=== PATIENT | female | born 1945 | race Caucasian/White ===

== ENCOUNTER 2020-08-25 23:49 | Observation (INO) ==
[2020-08-26] MEDS ORDERED: LORazepam 1 MG/2 ML VIAL IV STA (00:12)
[2020-08-26] MEDS ORDERED: ONDANSETRON INJ 2 MG/ML 2 ML VIAL IV STA (00:12)
[2020-08-26] MEDS ORDERED: SODIUM CHLORIDE 0.9% 1000ML 1,000 ML IV SCH (00:15)
[2020-08-26 00:36] LABS: Basophils # (auto) 0.02 K/uL (0-0.2); Basophils % (auto) 0.3 %; Eosinophils # (auto) 0.24 K/uL (0-0.5); Eosinophils % (auto) 3.1 %; Hematocrit (blood only) 36.2 % (37-47); Hemoglobin 12.4 g/dL (12.0-16.0); Immature Granulocytes # (auto) 0.01 K/uL (0.00-0.02); Immature Granulocytes % (auto) 0.1 %; Lymphocytes # (auto) 2.79 K/uL (1.2-3.4); Lymphocytes % (auto) 36.3 %; Mean Corpuscular Hemoglobin 30.1 pg (25-34); Mean Corpuscular Hgb Conc 34.3 g/dL (32-36); Mean Corpuscular Volume 87.9 fL (80-100); Monocytes # (auto) 0.37 K/uL (0.11-0.59); Monocytes % (auto) 4.8 %; Neutrophils # (auto) 4.25 K/uL (1.4-6.5); Neutrophils % (auto) 55.4 %; Platelet Count 288 K/uL (130-400); RDW Coefficient of Variation 12.7 % (11.5-14.5); RDW Standard Deviation 41.1 fL (36.4-46.3); Red Blood Count 4.12 M/uL (4.2-5.4); White Blood Count 7.68 K/uL (4.8-10.8)
[2020-08-26 00:46] LABS: Partial Thromboplastin Ratio 0.9; Partial Thromboplastin Time 25.8 Seconds (21.0-31.0); Prothrombin Time 10.3 Seconds (9.0-12.0)
[2020-08-26 00:51] LABS: Alanine Aminotransferase 23 U/L (12-78); Albumin Level 3.6 gm/dl (3.4-5.0); Aspartate Aminotransferase 14 U/L (15-37); BUN Creatinine Ratio 26.8 (10-20); Blood Urea Nitrogen 24 mg/dl (7-18); Calcium 9.3 mg/dl (8.5-10.1); Carbon Dioxide 28 mmol/L (21-32); Chloride 108 mmol/L (98-107); Est GFR (African American) 74.5; Est GFR (Non-African American) 64.3; Glucose 112 mg/dl (70-99); Lipase 169 U/L (73-393); Magnesium 1.8 mg/dl (1.8-2.4); Potassium 3.7 mmol/L (3.5-5.1); Sodium 141 mmol/L (136-145)
[2020-08-26 01:02] LABS: Alkaline Phosphatase 70 U/L (45-117); Bilirubin,Total 0.2 mg/dl (0.2-1); Globulin 3.5 gm/dl (2.5-4.0); Total Protein 7.1 gm/dl (6.4-8.2); Troponin I < 0.015 ng/ml (0-0.045)
[2020-08-26 01:32] LABS: Lyme Ab IgG w/WB Rflx Negative (Negative); Lyme Ab IgM w/WB Rflx Negative (Negative)
[2020-08-26 02:17] LABS: Appearance Urine Clear (Clear); Bacteria Urine Automated Negative (Negative); Bilirubin Urine Negative (Negative); Blood Urine 2+ (Negative); Color Urine Yellow; Glucose Urine UA Negative (Negative); Ketones Urine Negative (Negative); Leukocyte Esterase Urine Negative (Negative); Nitrite Urine Negative (Negative); Specific Gravity Urine 1.009 (1.000-1.030); Urobilinogen Urine Negative (Negative); pH Urine 7.5 (4.5-7.5)
[2020-08-26 02:20] LABS: Protein Urine 2+ (Negative)
[2020-08-26 02:21] LABS: Sulfosalicylic Acid Urine Positive (Negative)
[2020-08-26] MEDS ORDERED: ACETAMINOPHEN 325 MG TAB PO PRN (04:43)
[2020-08-26] MEDS ORDERED: ONDANSETRON INJ 2 MG/ML 2 ML VIAL IV PRN (04:43)
[2020-08-26] MEDS ORDERED: PANTOprazole 40 MG TAB PO PRN (04:53)
[2020-08-26] MEDS ORDERED: MELATONIN 3 MG TAB PO PRN (04:54)
--- NOTE | 2020-08-26 06:06 | History and Physical Report ---
DATE OF ADMISSION: 08/26/2020 CHIEF COMPLAINT: Vertigo. HISTORY OF PRESENT ILLNESS: A 75-year-old female with past medical history significant for hypertension, GERD, history of asymptomatic microscopic hematuria, history of osteoarthritis of both knees, chronic rhinitis, history of hypercalcemia, history of anaphylaxis to spironolactone, family history of breast cancer who lives with her came in with vertigo. The patient is going to sleep and suddenly felt the room spinning. They thought it will go away, but did not go away and she has severe nausea and vomiting, which put pressure in her bladder and she has incontinence of the urine. She is also having ambulatory dysfunction, imbalance and was brought in here. The patient in the ER received Ativan, Zofran, and fluids. CT of the head, preliminary report unremarkable. The symptoms slowly improved. Her spinning has improved, but she still has some imbalance, but that is better than what she came in. The patient also complains of some drainage from the ear for last 2 days. Denies any fever, chills, no headache, no blurred vision, no runny nose, no sore throat, no cough, no loss of sense of smell or taste. No chest pain, no shortness of breath. No exposure to COVID patients. No abdominal discomfort, no diarrhea or constipation. Normal bladder movements. No swelling in the legs, no rash. Currently resting comfortably and hemodynamically stable. ALLERGIES: OXYCODONE, ASPIRIN, PERCODAN AND SPIRONOLACTONE. PAST MEDICAL HISTORY: As mentioned above. PAST SURGICAL HISTORY: Colonoscopy, dilatation and curettage, lasering of secondary cataracts, urethral surgery, tonsillectomy, removal of cataract lens, right repair of ruptured rotator cuff. MEDICATIONS: The patient is on estradiol vaginal ring every 3 months, amlodipine 2.5 mg p.o. daily, valsartan 80 mg p.o. daily, albuterol 2 puffs q4hr p.r.n., melatonin 5 mg p.o. at bedtime p.r.n., Nexium 20 mg p.o. daily p.r.n. FAMILY HISTORY: Significant for sister had breast cancer. Brother had kidney cancer. Father had prostate cancer, heart disorder, hypertension. Paternal grandmother had stroke. SOCIAL HISTORY: , lives with her . Quit smoking in 2008, smoked an average of 0.2 packs a day for 40 years. Alcohol social drinking. No drug use. REVIEW OF SYMPTOMS: As per HPI. Rest of the review of symptoms negative. PHYSICAL EXAMINATION: GENERAL: The patient is of moderate build, not in acute distress. VITAL SIGNS: Temperature 36.4, pulse 80, respiratory rate 15, blood pressure 174/82, oxygen 95% on room air. HEENT: No pallor, no icterus. Pupils equal, round, reactive to light. Mild horizontal nystagmus present.Right ear erythema seen close to ear drum. Left ear not able to evaluate.some wax seen. NECK: No JVD, no neck masses. CARDIOVASCULAR: S1, S2 heard, regular rate and rhythm, no murmur, no gallop. RESPIRATORY SYSTEM: Normal AP diameter. No accessory muscle use. No wheezing, no crackles. ABDOMEN: Soft, bowel sounds present, nontender. No distention. CENTRAL NERVOUS SYSTEM: Cranial nerves II-XII grossly intact. Nonfocal. Power 5/5 in all extremities. Sensation is intact. No pronator drift. Coordination of movements normal. EXTREMITIES: No edema, no erythema. LABORATORY DATA: WBC 7.6, hemoglobin 12.4, hematocrit 36.2, platelets 288. PT 13.3, INR 1, APTT 25.8. Sodium 141, potassium 3.7, chloride 108, bicarbonate 28, BUN 24, creatinine 0.8, serum glucose 112, calcium 9.3, magnesium 1.8, total bilirubin 0.2, AST 14, ALT 23, alkaline phosphatase 70. Troponin I less than 0.015. TSH 3.7. Lipase 169. Urinalysis, +2 blood, +2 protein. Lyme disease screen negative. IMAGING: CT of the head, preliminary report unremarkable. EKG: Normal sinus rhythm with sinus arrhythmia at rate of 71, QTC of 475. ASSESSMENT AND PLAN: A 75-year-old female who presents with vertigo. 1. Vertigo, also has some drainage of the ears for 2 days, some mild erythema seen close to the eardrum on the right ear. Could not evaluate in the left ear, could be from the ear infection, could be benign positional vertigo. CT of head is unremarkable. Currently, symptoms are improving. We will continue with. Augmentin for ear infection. Antivert prn. and consult neurology for further recommendations. Monitor in the medical floor. 2. History of hypertension. Continue valsartan, amlodipine. 3. Gastroesophageal reflux disease. Continue Nexium. 4. Deep venous thrombosis prophylaxis, sequential compression devices for now. DISPOSITION: Admit to medical floor. Expect to discharge home and follow with family doctor. PT and OT prior to discharge. Social service to help with discharge planning. UMESH
[2020-08-26] MEDS ORDERED: MECLIZINE HCL 25 MG TAB PO PRN (06:16)
--- NOTE | 2020-08-26 06:24 | Emergency Department Note ---
History of Present Illness General Chief complaint: Vertigo Stated complaint: VERTIGO,DIZZY,NAUSEA, Time Seen by Provider: 08/26/20 00:06 History of Present Illness Maximum Pain Intensity: 2 This is a 75-year-old female presenting to the emergency department for evaluation of nausea, vomiting, and dizziness for the past hour. The patient states that she went out with her this evening, had dinner, and then came home as normal. She got into bed and was reading a book when she began having a spinning sensation from left to right. The patient states this became very severe and she had multiple episodes of vomiting. She had difficulty ambulating because of the dizziness. She is not having significant head, neck, chest, or abdominal pain. She is able to move her extremities without difficulty. The patient considers herself usually healthy. Home Medications Home Medications Medication Instructions Recorded Confirmed Type amlodipine 2.5 mg PO DAILY 03/30/19 08/26/20 History diphenhydramine HCl [Unisom 50 - 100 mg PO HS PRN 03/30/19 08/26/20 History Sleepgels] esomeprazole magnesium [Nexium] 20 mg PO DAILY PRN 08/26/20 08/26/20 History melatonin 5 mg PO HS PRN 08/26/20 08/26/20 History valsartan 80 mg PO DAILY 08/26/20 08/26/20 History Allergies Allergy/AdvReac Type Severity Reaction Status Date / Time spironolactone Allergy Severe ANAPHYLACTI Verified 08/26/20 00:48 C mold Allergy Mild SNEEZING, Verified 08/26/20 00:48 CONGESTION pollen extracts Allergy Mild SNEEZING, Verified 08/26/20 00:48 CONGESTION codeine AdvReac Intermediate VERY DROWSY Verified 08/26/20 00:48 Dust Allergy Mild SNEEZING, Uncoded 08/26/20 00:48 CONGESTION Past Med/Surg History Medical History (Updated 08/26/20 @ 06:37 by Balta Paul PA-C) Hypertension Surgical History (Updated 08/26/20 @ 06:25 by Balta Paul PA-C) No significant past surgical history Family History Other Family history non-contributory Social History Smoking Status: Current every day smoker Tobacco Type: Cigarettes Cigarettes Per Day: 1; Second Hand Exposure: Yes ( smokes 2 cigars a week); Do You Dip or Chew Tobacco: No; Tobacco Cessation Education Requested by Patient: No Hx Alcohol Use: Yes Alcohol type: wine and hard liquor Hx Substance Use: No Preferred Language: Italian Beliefs That Will Affect Care: None Current Living Situation: Spouse Other Information That Helps Us Care for You: No Feels Safe at Home: Yes Safety Concerns: Feels Safe At This Time Assistive Devices: None Review of Systems A total of 10 systems reviewed and were otherwise negative Physical Exam Vital Signs Vital Signs - 24 hr 08/25/20 23:53 08/26/20 00:10 08/26/20 00:15 Temperature 36.4 C L Temperature Source Oral Pulse Rate 70 71 75 Pulse Rate [Apical] Pulse Rate from SpO2 Sensor 66 76 Pulse Rhythm [Apical] Pulse Strength [Apical] Respiratory Rate 16 13 12 Respiratory Effort / Characteristics Respiratory Depth Blood Pressure 170/109 H 174/85 H Blood Pressure [Right Arm] Blood Pressure Mean 129 105 Blood Pressure Mean [Right Arm] Pulse Oximetry 99 100 100 Oxygen Delivery Method Room Air Sepsis Recent Fever Within 48 Hours No Sepsis New/Unexplained Change in Mental Status No Sepsis Action Taken by Nursing No Action Required 08/26/20 00:30 08/26/20 00:58 08/26/20 01:00 Temperature Temperature Source Pulse Rate 71 92 H 80 Pulse Rate [Apical] Pulse Rate from SpO2 Sensor 71 76 Pulse Rhythm [Apical] Pulse Strength [Apical] Respiratory Rate 14 19 15 Respiratory Effort / Characteristics Respiratory Depth Blood Pressure 180/91 H 164/96 H Blood Pressure [Right Arm] Blood Pressure Mean 98 131 Blood Pressure Mean [Right Arm] Pulse Oximetry 100 100 Oxygen Delivery Method Sepsis Recent Fever Within 48 Hours Sepsis New/Unexplained Change in Mental Status Sepsis Action Taken by Nursing 08/26/20 01:10 08/26/20 01:20 08/26/20 01:30 Temperature Temperature Source Pulse Rate 89 71 69 Pulse Rate [Apical] Pulse Rate from SpO2 Sensor 87 84 68 Pulse Rhythm [Apical] Pulse Strength [Apical] Respiratory Rate 17 6 L 14 Respiratory Effort / Characteristics Respiratory Depth Blood Pressure 145/71 H Blood Pressure [Right Arm] Blood Pressure Mean 94 Blood Pressure Mean [Right Arm] Pulse Oximetry 94 97 99 Oxygen Delivery Method Sepsis Recent Fever Within 48 Hours Sepsis New/Unexplained Change in Mental Status Sepsis Action Taken by Nursing 08/26/20 01:40 08/26/20 01:50 08/26/20 02:00 Temperature Temperature Source Pulse Rate 73 66 79 Pulse Rate [Apical] Pulse Rate from SpO2 Sensor 71 69 80 Pulse Rhythm [Apical] Pulse Strength [Apical] Respiratory Rate 14 15 15 Respiratory Effort / Characteristics Respiratory Depth Blood Pressure 166/94 H Blood Pressure [Right Arm] Blood Pressure Mean 122 Blood Pressure Mean [Right Arm] Pulse Oximetry 98 100 99 Oxygen Delivery Method Sepsis Recent Fever Within 48 Hours Sepsis New/Unexplained Change in Mental Status Sepsis Action Taken by Nursing 08/26/20 02:09 08/26/20 02:10 08/26/20 02:39 Temperature Temperature Source Pulse Rate 85 80 Pulse Rate [Apical] 65 Pulse Rate from SpO2 Sensor 81 80 Pulse Rhythm [Apical] Regular Pulse Strength [Apical] Normal Respiratory Rate 19 17 18 Respiratory Effort / Characteristics Non-Labored Respiratory Depth Normal Blood Pressure Blood Pressure [Right Arm] 155/73 H Blood Pressure Mean Blood Pressure Mean [Right Arm] 100 Pulse Oximetry 100 100 95 Oxygen Delivery Method Room Air Sepsis Recent Fever Within 48 Hours Sepsis New/Unexplained Change in Mental Status Sepsis Action Taken by Nursing 08/26/20 02:50 08/26/20 03:00 Temperature Temperature Source Pulse Rate 70 82 Pulse Rate [Apical] Pulse Rate from SpO2 Sensor Pulse Rhythm [Apical] Pulse Strength [Apical] Respiratory Rate 13 14 Respiratory Effort / Characteristics Respiratory Depth Blood Pressure 174/82 H Blood Pressure [Right Arm] Blood Pressure Mean 104 Blood Pressure Mean [Right Arm] Pulse Oximetry Oxygen Delivery Method Sepsis Recent Fever Within 48 Hours Sepsis New/Unexplained Change in Mental Status Sepsis Action Taken by Nursing VITALS: Vitals are noted on the nurse's note and reviewed by myself. Vital signs stable. GENERAL: Well-developed, well-nourished, white female, who laying flat on the bed in the ER room. Her eyes are closed and she appears uncomfortable. HEAD: Normocephalic atraumatic. EARS: External ear normal. External auditory canals clear, tympanic membranes pearly dejesus without erythema or effusion bilaterally. EYES: Pupils equal round and reactive to light and accommodation. Conjunctivae without injection, sclerae without icterus. Extraocular movements intact. NOSE: Patent, turbinates without inflammation or discharge. MOUTH: Mucous membranes moist. Tonsils are not enlarged. Pharynx without e rythema, blood, or exudate. Uvula midline. Airway patent. NECK: Supple without nuchal rigidity. No lymphadenopathy. No thyromegaly. Cervical spine is nontender. HEART: Regular rate and rhythm without murmurs gallops or rubs. LUNGS: Clear to auscultation bilaterally without wheezes, rales or rhonchi. No retractions or accessory muscle use. MUSCULOSKELETAL: No muscle atrophy, erythema, or edema noted. Full range of motion in all extremities. No tenderness to palpation. NEURO: Patient was alert and oriented to person place and time. CN II through XII grossly intact. No focal neurological deficits. Course Administered Medications Discontinued Medications Sodium Chloride (Nss 1000ml) 1,000 mls @ 999 mls/hr IV .Q1H1M BRANDON Stop: 08/26/20 01:15 Last Infusion: 08/26/20 01:38 Dose: 0 mls/hr Documented by: [id number] Admin: 08/26/20 00:37 Dose: 999 mls/hr Documented by: [id number] Lorazepam (Ativan) 1 mg in 2 mls @ 2 mls/min IV NOW STA Stop: 08/26/20 00:13 Last Admin: 08/26/20 00:37 Dose: 2 mls/min Documented by: [id number] Ondansetron HCl (Ondansetron Inj 2 Mg/Ml 2 Ml Vial) 4 mg IV NOW STA Stop: 08/26/20 00:13 Last Admin: 08/26/20 00:37 Dose: 4 mg Documented by: [id number] Medical Decision Making Differential Diagnosis Differential diagnosis: Etiologies such as benign positional vertigo, labrynthitis, dehydration, hypovolemia, anemia, tumor, infection, hypoglycemia, electrolyte abnormalities, cardiac sources, toxicological sources, central neurologic process, as well as others were entertained. Laboratory Data Result diagrams: 08/26/20 00:23 08/26/20 00:25 Lab Results 08/26/20 08/26/20 08/26/20 Range/Units 00:23 00:23 00:23 WBC 7.68 (4.8-10.8) K/uL RBC 4.12 L (4.2-5.4) M/uL Hgb 12.4 (12.0-16.0) g/dL Hct 36.2 L (37-47) % MCV 87.9 (80-100) fL MCH 30.1 (25-34) pg MCHC 34.3 (32-36) g/dL RDW Std Deviation 41.1 (36.4-46.3) fL RDW Coeff of Bruce 12.7 (11.5-14.5) % Plt Count 288 (130-400) K/uL MPV 10.0 (7.4-10.4) fL Immature Gran % (Auto) 0.1 % Neut % (Auto) 55.4 % Lymph % (Auto) 36.3 % [place] % (Auto) 4.8 % Eos % (Auto) 3.1 % Baso % (Auto) 0.3 % Neut # (Auto) 4.25 (1.4-6.5) K/uL Lymph # (Auto) 2.79 (1.2-3.4) K/uL [place] # (Auto) 0.37 (0.11-0.59) K/uL Eos # (Auto) 0.24 (0-0.5) K/uL Baso # (Auto) 0.02 (0-0.2) K/uL Immature Gran # (Auto) 0.01 (0.00-0.02) K/uL PT 10.3 (9.0-12.0) Seconds INR 1.0 (0.9-1.1) APTT 25.8 (21.0-31.0) Seconds PTT Ratio 0.9 Sodium (136-145) mmol/L Potassium (3.5-5.1) mmol/L Chloride (98-107) mmol/L Carbon Dioxide (21-32) mmol/L Anion Gap (3-11) BUN (7-18) mg/dl Creatinine (0.6-1.2) mg/dl Est Cr Clr Drug Dosing Est GFR ( Amer) Est GFR (Non-Af Amer) BUN/Creatinine Ratio (10-20) Glucose (70-99) mg/dl Calcium (8.5-10.1) mg/dl Magnesium (1.8-2.4) mg/dl Total Bilirubin (0.2-1) mg/dl AST (15-37) U/L ALT (12-78) U/L Alkaline Phosphatase (45-117) U/L Troponin I (0-0.045) ng/ml Total Protein (6.4-8.2) gm/dl Albumin (3.4-5.0) gm/dl Globulin (2.5-4.0) gm/dl Albumin/Globulin Ratio (0.9-2) Lipase (73-393) U/L TSH (0.300-4.500) uIu/ml Urine Color Urine Appearance (Clear) Urine pH (4.5-7.5) Ur Specific [place] (1.000-1.030) Urine Protein (Negative) Urine Glucose (UA) (Negative) Urine Ketones (Negative) Urine Blood (Negative) Urine Nitrite (Negative) Urine Bilirubin (Negative) Urine Urobilinogen (Negative) Ur Leukocyte Esterase (Negative) Urine WBC (Auto) (0-5) /hpf Urine RBC (Auto) (0-4) /hpf U Hyaline Cast (Auto) (0-5) /lpf U Epithel Cells (Auto) (0-5) /lpf Urine Bacteria (Auto) (Negative) Lyme Disease IgG Ab Negative (Negative) Lyme Disease IgM Ab Negative (Negative) 08/26/20 08/26/20 Range/Units 00:25 02:05 WBC (4.8-10.8) K/uL RBC (4.2-5.4) M/uL Hgb (12.0-16.0) g/dL Hct (37-47) % MCV (80-100) fL MCH (25-34) pg MCHC (32-36) g/dL RDW Std Deviation (36.4-46.3) fL RDW Coeff of Bruce (11.5-14.5) % Plt Count (130-400) K/uL MPV (7.4-10.4) fL Immature Gran % (Auto) % Neut % (Auto) % Lymph % (Auto) % [place] % (Auto) % Eos % (Auto) % Baso % (Auto) % Neut # (Auto) (1.4-6.5) K/uL Lymph # (Auto) (1.2-3.4) K/uL [place] # (Auto) (0.11-0.59) K/uL Eos # (Auto) (0-0.5) K/uL Baso # (Auto) (0-0.2) K/uL Immature Gran # (Auto) (0.00-0.02) K/uL PT (9.0-12.0) Seconds INR (0.9-1.1) APTT (21.0-31.0) Seconds PTT Ratio Sodium 141 (136-145) mmol/L Potassium 3.7 (3.5-5.1) mmol/L Chloride 108 H (98-107) mmol/L Carbon Dioxide 28 (21-32) mmol/L Anion Gap 5.0 (3-11) BUN 24 H (7-18) mg/dl Creatinine 0.88 (0.6-1.2) mg/dl Est Cr Clr Drug Dosing Not Reportable Est GFR ( Amer) 74.5 Est GFR (Non-Af Amer) 64.3 BUN/Creatinine Ratio 26.8 H (10-20) Glucose 112 H (70-99) mg/dl Calcium 9.3 (8.5-10.1) mg/dl Magnesium 1.8 (1.8-2.4) mg/dl Total Bilirubin 0.2 (0.2-1) mg/dl AST 14 L (15-37) U/L ALT 23 (12-78) U/L Alkaline Phosphatase 70 (45-117) U/L Troponin I < 0.015 (0-0.045) ng/ml Total Protein 7.1 (6.4-8.2) gm/dl Albumin 3.6 (3.4-5.0) gm/dl Globulin 3.5 (2.5-4.0) gm/dl Albumin/Globulin Ratio 1.0 (0.9-2) Lipase 169 (73-393) U/L TSH 3.780 (0.300-4.500) uIu/ml Urine Color Yellow Urine Appearance Clear (Clear) Urine pH 7.5 (4.5-7.5) Ur Specific [place] 1.009 (1.000-1.030) Urine Protein 2+ H (Negative) Urine Glucose (UA) Negative (Negative) Urine Ketones Negative (Negative) Urine Blood 2+ H (Negative) Urine Nitrite Negative (Negative) Urine Bilirubin Negative (Negative) Urine Urobilinogen Negative (Negative) Ur Leukocyte Esterase Negative (Negative) Urine WBC (Auto) 1-5 (0-5) /hpf Urine RBC (Auto) 5-10 H (0-4) /hpf U Hyaline Cast (Auto) 1-5 (0-5) /lpf U Epithel Cells (Auto) 10-20 H (0-5) /lpf Urine Bacteria (Auto) Negative (Negative) Lyme Disease IgG Ab (Negative) Lyme Disease IgM Ab (Negative) Imaging Data Radiologist's Impression: Preliminary Findings Only See Final Report For Complete Findings CT HEAD: No intracranial hemorrhage, midline shift or mass effect. No evidence for cortical infarct. Progressive deep white matter presumed microvascular changes when compared to the examination dated 11/14/2009. No significant ventriculomegaly. The paranasal sinuses and mastoid air cells are well-aerated. ECG Data Attestation: I personally reviewed and interpreted this ECG as follows: Indication: + other (Dizzy) Additional Comments: Normal sinus rhythm with sinus arrhythmia @71 bpm Septal infarct (cited on or before 26-AUG-2020) When compared with ECG of 30-MAR-2019 19:58, QT has lengthened Blood Pressure Blood Pressure Findings: Elevated blood pressure Blood Pressure Disposition: further management by hospitalist [facility] Narrative Physical exam and history were performed. Nursing notes, EMR, and Medication List were personally reviewed. Patient appears to have nausea, vomiting, and dizziness bring her to the ER. The patient does appear uncomfortable on exam. IV access was established and labs are obtained. She was hydrated with normal saline and given IV Ativan and IV Zofran. The patient was sent to CT scan for further evaluation. The patient's blood work is as above and was reviewed. She does not have a significantly elevated white blood cell count, gross anemia, or significant electrolyte imbalance. Lipase and transaminases are not diagnostic. Troponin x1 is negative. TSH shows euthyroid state. Urine is without obvious infection. Lyme screen is negative. CT scan was reviewed by myself and radiology showing no acute process. On reevaluation the patient did have some improvement of her dizziness symptoms. The case was discussed with my attending physician, who also independently evaluated the patient. The patient evidently did have some alcohol this evening, and this may have played a role in her symptoms. I did have the patient attempt an ambulatory trial, and she was very unsteady on her feet. She was able to use the bathroom with assistance, however she is certainly not stable for discharge home. Because of this the case was discussed with the on- call hospitalist, who agreed to evaluate the patient here in the ER. Please see their dictation for further patient course, plan, and disposition. The chart was completed utilizing [employer] Speech Voice Recognition Software. Grammatical errors, random word insertions, pronoun errors, and incomplete sentences are an occasional consequence of this system due to software limitations, ambient noise, and hardware issues. Any formal questions or concerns about the content, text, or information contained within the body of this dictation should be directly addressed to the provider for clarification. . Impression & Plan Dizziness, Nausea and vomiting Discharge Plan Visit Data Chief Complaint: Vertigo Stated Complaint: VERTIGO,DIZZY,NAUSEA, ED Provider: Gerda Rojo ED Midlevel Provider: Balta Paul Discharge Problem: Dizziness, Nausea and vomiting Patient Disposition: Admitted As Inpatient Discharge Instructions Interventions: ED Discharge Assessment Last Done: 08/26/20 04:20
--- NOTE | 2020-08-26 06:29 | Emergency Department Note ---
ED Visit Note I have personally seen and evaluated the patient with the PA. I agree with the diagnosis and management decisions and have been personally involved in the case. On my reevaluation, patient was feeling somewhat improved and was ambulatory to the bathroom with assistance. She was unsteady on her feet and did admit to alcohol with her dinner out this evening. It is difficult to say if this is playing a role in her vertiginous symptoms. The patient does not seem to be stable for discharge to her at this time and will require evaluation by the hospitalist. Please see Balta Paul PA-C's notes for further details of the history, physical and visit. .
--- NOTE | 2020-08-26 07:14 | CT Scan Report ---
CT SCAN OF THE BRAIN WITHOUT IV CONTRAST CLINICAL HISTORY: Vertigo. Vomiting. COMPARISON STUDY: CT of the brain dated 11/14/2009. TECHNIQUE: Unenhanced axial CT scan of the brain is performed from the vertex to the skull base. A do se lowering technique was utilized adhering to the principles of ALARA. CT DOSE: 614.27 mGy.cm FINDINGS: Brain parenchyma: There are age-related involutional changes noting moderate subcortical and periven tricular microangiopathic change. There is no hemorrhage, mass effect, or evidence of acute territori al ischemia by CT criteria. Yates-white matter differentiation is preserved. No extra-axial fluid abhay ection is seen. Ventricles, sulci, cisterns: Prominent secondary to involutional change. Intracranial vasculature: There is atherosclerotic calcification of the cavernous carotid and vertebr al arteries. Calvarium: Unremarkable. Sinuses and mastoids: The visualized paranasal sinuses are clear. The mastoid air cells are well pneu matized. Orbits: The bony orbits are grossly intact. There are bilateral ocular lens implants. IMPRESSION: There is no hemorrhage, mass effect, or evidence of acute territorial ischemia by CT jimmy walker. ACT 112: Negative or not required by law. Electronically signed by: Porter Garrison M.D. 08/26/2020 7:13 AM
[2020-08-26] MEDS: AMOXICILLIN/CLAVULANATE 875 MG TAB PO SCH ×2 (08:51→16:41)
[2020-08-26] MEDS: VALSARTAN 80 MG TAB PO SCH (08:52)
[2020-08-26] MEDS ORDERED: AMLODIPINE BESYLATE 5 MG TAB PO SCH (09:00)
--- NOTE | 2020-08-26 12:02 | Hospitalist Progress Note ---
Date of Service August 26, 2020 Assessment & Plan (1) Nausea and vomiting: (2) Dizziness: Vertigo Likely related to labyrinthitis, Otitis media Considering h/o chronic intermittent ear discharge, tinnitus Currently on augmentin for ear infection Antivert prn Vertigo resolved at this time PT/OT Will need ENT follow up on discharge (3) Hypertension: Continue home antihypertensives Other plan as detailed in H/P this morning Admission and Anticipated Discharge Date Admission Date: August 26, 2020 Subjective Patient seen and examined Reports chronic hx of intermittent ear discharge and ringing in both ears as well as some hearing loss However, stated vertigo that occurred yesterday was the first time. Denied any fevers, chills Has chronic cough from chronic rhinitis Other history as detailed in Dr Welch's note this AM Physical Exam Constitutional: well nourished and + well hydrated; no acute distress Eyes: PERRL, conjunctivae normal, anicteric sclerae ENMT: external ear and nose normal, oropharynx normal Ears: no external ear abnormality No tragal tenderness or external meatal discharge noted Respiratory: normal respiratory effort, lungs clear to auscultation Cardiovascular: RRR, no murmur, no edema Gastrointestinal (Abdomen): normal bowel sounds, soft, nontender, no hepatosplenomegaly Neurologic: PERRL, EOMI, accommodation nl, no face palsy, no dysarthria Psychiatric: A+Ox3, euthymic affect Results & Data Results & Data ([facility]) Vital Signs (Past 12 Hours) Vital Signs Temp Pulse Pulse Pulse Pulse Resp BP 08/26/20 07:44 36.6 C 82 16 08/26/20 04:51 36.3 C L 85 16 08/26/20 04:14 76 17 125/67 08/26/20 03:10 80 15 08/26/20 03:00 82 14 174/82 H 08/26/20 02:50 70 13 08/26/20 02:39 65 18 08/26/20 02:10 80 17 08/26/20 02:09 85 19 08/26/20 02:00 79 15 166/94 H 08/26/20 01:50 66 15 08/26/20 01:40 73 14 08/26/20 01:30 69 14 145/71 H 08/26/20 01:20 71 6 L 08/26/20 01:10 89 17 08/26/20 01:00 80 15 164/96 H 08/26/20 00:58 92 H 19 08/26/20 00:30 71 14 180/91 H 08/26/20 00:15 75 12 08/26/20 00:10 71 13 174/85 H BP Pulse Ox 08/26/20 07:44 153/88 H 98 08/26/20 04:51 145/88 H 98 08/26/20 04:14 99 08/26/20 03:10 08/26/20 03:00 08/26/20 02:50 08/26/20 02:39 155/73 H 95 08/26/20 02:10 100 08/26/20 02:09 100 08/26/20 02:00 99 08/26/20 01:50 100 08/26/20 01:40 98 08/26/20 01:30 99 08/26/20 01:20 97 08/26/20 01:10 94 08/26/20 01:00 100 08/26/20 00:58 08/26/20 00:30 100 08/26/20 00:15 100 08/26/20 00:10 100 Laboratory Results Laboratory Results - last 24 hr 08/26/20 08/26/20 08/26/20 00:23 00:23 00:23 WBC 7.68 RBC 4.12 L Hgb 12.4 Hct 36.2 L MCV 87.9 MCH 30.1 MCHC 34.3 RDW Std Deviation 41.1 RDW Coeff of Bruce 12.7 Plt Count 288 MPV 10.0 Immature Gran % (Auto) 0.1 Neut % (Auto) 55.4 Lymph % (Auto) 36.3 [place] % (Auto) 4.8 Eos % (Auto) 3.1 Baso % (Auto) 0.3 Neut # (Auto) 4.25 Lymph # (Auto) 2.79 [place] # (Auto) 0.37 Eos # (Auto) 0.24 Baso # (Auto) 0.02 Immature Gran # (Auto) 0.01 PT 10.3 INR 1.0 APTT 25.8 PTT Ratio 0.9 Sodium Potassium Chloride Carbon Dioxide Anion Gap BUN Creatinine Est Cr Clr Drug Dosing Est GFR ( Amer) Est GFR (Non-Af Amer) BUN/Creatinine Ratio Glucose Calcium Magnesium Total Bilirubin AST ALT Alkaline Phosphatase Troponin I Total Protein Albumin Globulin Albumin/Globulin Ratio Lipase TSH Urine Color Urine Appearance Urine pH Ur Specific [place] Urine Protein Urine Glucose (UA) Urine Ketones Urine Blood Urine Nitrite Urine Bilirubin Urine Urobilinogen Ur Leukocyte Esterase Urine WBC (Auto) Urine RBC (Auto) U Hyaline Cast (Auto) U Epithel Cells (Auto) Urine Bacteria (Auto) Lyme Disease IgG Ab Negative Lyme Disease IgM Ab Negative Hepatitis C Ab Screen 08/26/20 08/26/20 08/26/20 00:25 02:05 06:17 WBC RBC Hgb Hct MCV MCH MCHC RDW Std Deviation RDW Coeff of Bruce Plt Count MPV Immature Gran % (Auto) Neut % (Auto) Lymph % (Auto) [place] % (Auto) Eos % (Auto) Baso % (Auto) Neut # (Auto) Lymph # (Auto) [place] # (Auto) Eos # (Auto) Baso # (Auto) Immature Gran # (Auto) PT INR APTT PTT Ratio Sodium 141 Potassium 3.7 Chloride 108 H Carbon Dioxide 28 Anion Gap 5.0 BUN 24 H Creatinine 0.88 Est Cr Clr Drug Dosing Not Reportable Est GFR ( Amer) 74.5 Est GFR (Non-Af Amer) 64.3 BUN/Creatinine Ratio 26.8 H Glucose 112 H Calcium 9.3 Magnesium 1.8 Total Bilirubin 0.2 AST 14 L ALT 23 Alkaline Phosphatase 70 Troponin I < 0.015 Total Protein 7.1 Albumin 3.6 Globulin 3.5 Albumin/Globulin Ratio 1.0 Lipase 169 TSH 3.780 Urine Color Yellow Urine Appearance Clear Urine pH 7.5 Ur Specific [place] 1.009 Urine Protein 2+ H Urine Glucose (UA) Negative Urine Ketones Negative Urine Blood 2+ H Urine Nitrite Negative Urine Bilirubin Negative Urine Urobilinogen Negative Ur Leukocyte Esterase Negative Urine WBC (Auto) 1-5 Urine RBC (Auto) 5-10 H U Hyaline Cast (Auto) 1-5 U Epithel Cells (Auto) 10-20 H Urine Bacteria (Auto) Negative Lyme Disease IgG Ab Lyme Disease IgM Ab Hepatitis C Ab Screen Neg
--- NOTE | 2020-08-26 15:22 | Consultation Report ---
DATE OF CONSULTATION: 08/26/2020 NEUROLOGY CONSULTATION NOTE CHIEF COMPLAINT: Vertigo. HISTORY OF PRESENT ILLNESS: A 75-year-old woman who presented to the Emergency Department this morning for vertigo. She has a past medical history significant for hypertension as well as osteoarthritis of both knees and a history of hypercalcemia. The patient was going to sleep last evening and suddenly felt like the room was spinning. She thought it was going to go away, but it persisted. She then developed severe nausea and vomiting with incontinence. As a result of the vertigo she was having ambulatory dysfunction with balance issues. She was brought to the Emergency Department this morning and received Ativan, Zofran, and fluids. CT of the head was unremarkable. Symptoms did slowly improve as well as the vertigo also improved, but her balance remained poor and she was brought in for observation. Neurology was consulted for evaluation of vertigo. ALLERGIES: OXYCODONE, ASPIRIN, PERCODAN SPIRONOLACTONE. PAST MEDICAL HISTORY: Hypertension, gastroesophageal reflux disease, history of microscopic hematuria. History of osteoarthritis of both knees, chronic rhinitis, hypercalcemia, history of anaphylaxis to spironolactone and family history of breast cancer. PAST SURGICAL HISTORY: Colonoscopy, D&C, lasering of secondary cataracts, urethral surgery, tonsillectomy, removal of cataracts lenses, right repair of ruptured rotator cuff. HOME MEDICATIONS: Estradiol vaginal ring, amlodipine 2.5 mg daily, valsartan 80 mg daily, albuterol as needed, melatonin 5 mg nightly, Nexium daily. FAMILY HISTORY: Sister had breast cancer. Brother had kidney cancer. Father had prostate cancer, heart disorder, hypertension. SOCIAL HISTORY: She is , lives with her . She quit smoking in 2008. She smoked an average of 0.2 packs per day for 40 years. She drinks alcohol socially and no polysubstance abuse history. REVIEW OF SYSTEMS: Review of systems was conducted and negative except as noted for vertigo, nausea and vomiting. PHYSICAL EXAMINATION: VITAL SIGNS: Blood pressure 153/88, pulse is 82, respiratory rate 16, temperature is 36.6, oxygen saturation 98% on room air. EXAM: Constitutional: appearance normally developed Face: normocephalic and atraumatic Eyes: normal lids, normal conjunctiva Neck: supple Respiratory: normal effort Cardiovascular: normal pulses Abdomen: non distended Skin: no rashes, lesions, or ulcers noted Psychiatric: normal mood and normal affect NEUROLOGIC EXAMINATION: Appearance: no acute distress Orientation: awake, alert and oriented x 3 Mental Status: alert Attention: normal Knowledge: appropriate Language: no aphasia Speech: no dysarthria Cranial Nerves: CN 2 - no visual defect on confrontation and pupils round, equal, reactive to light CN 3, 4, 6 - extra-ocular movements intact CN 5 - facial sensation intact CN 7 - no facial asymmetry CN 8 - intact hearing CN 9, 10 - palate symmetric CN 11 - good shoulder shrug CN 12 - tongue midline Gait: stable, no ataxia and can perform tandem walking Coordination: no ataxia with finger to nose testing Sensory: intact and symmetric to light touch Muscle Tone: normal Muscle exam: No focal weakness Reflexes: Negative ahumada Bilateral DIAGNOSTIC TESTING: WBC 7.68, hemoglobin 12.4. Sodium 141, potassium 3.7, chloride 108, BUN 24, creatinine 0.88. TSH is 3.78. Urinalysis showed 2+ protein, 2+ blood, 10-20 epithelial cells. Lyme disease studies were negative. IMAGING: Head CT noncontrast showed no hemorrhage, mass effect, or evidence of acute territorial ischemia. ASSESSMENT AND PLAN: A 75-year-old woman with history of hypertension, admitted for acute vestibular syndrome. Likely peripheral in etiology and possibly due to viral inner ear neuritis. Symptoms have improved. However, given her age and history of hypertension would recommend obtaining an MRI brain with and without contrast to exclude a posterior circulation infarct. Otherwise, agree with physical therapy and conservative management. Neurology will follow up the results of the MRI brain. Followup will depend on the results of the imaging. Otherwise, if imaging is negative for acute ischemic stroke the patient can be discharged and follow up with her PCP. Please contact me with any additional questions. UMESH
[2020-08-26] MEDS ORDERED: AMLODIPINE BESYLATE 5 MG TAB PO ONE (16:52)
[2020-08-26] MEDS ORDERED: GADOBUTROL 65ML VIAL IV ONE (21:33)
--- NOTE | 2020-08-26 22:24 | Electrocardiogram Report ---
Test Reason : Blood Pressure : / mmHG Vent. Rate : 071 BPM Atrial Rate : 071 BPM P-R Int : 190 ms QRS Dur : 110 ms QT Int : 438 ms P-R-T Axes : 063 065 042 degrees QTc Int : 475 ms Normal sinus rhythm with sinus arrhythmia Septal infarct (cited on or before 26-AUG-2020) Abnormal ECG When compared with ECG of 30-MAR-2019 19:58, QT has lengthened Confirmed by Toño Flynn ([id number]) on 08/26/2020 10:24:14 PM Referred By: REFERRED SELF Confirmed By:Toño Flynn
[2020-08-27 05:40] LABS: Basophils # (auto) 0.02 K/uL (0-0.2); Basophils % (auto) 0.3 %; Eosinophils # (auto) 0.28 K/uL (0-0.5); Eosinophils % (auto) 4.1 %; Hematocrit (blood only) 37.4 % (37-47); Hemoglobin 12.6 g/dL (12.0-16.0); Immature Granulocytes # (auto) 0.01 K/uL (0.00-0.02); Immature Granulocytes % (auto) 0.1 %; Lymphocytes # (auto) 2.81 K/uL (1.2-3.4); Lymphocytes % (auto) 40.7 %; Mean Corpuscular Hemoglobin 29.4 pg (25-34); Mean Corpuscular Hgb Conc 33.7 g/dL (32-36); Mean Corpuscular Volume 87.4 fL (80-100); Mean Platelet Volume 10.1 fL (7.4-10.4); Monocytes # (auto) 0.42 K/uL (0.11-0.59); Monocytes % (auto) 6.1 %; Neutrophils # (auto) 3.36 K/uL (1.4-6.5); Neutrophils % (auto) 48.7 %; Platelet Count 274 K/uL (130-400); RDW Coefficient of Variation 12.8 % (11.5-14.5); Red Blood Count 4.28 M/uL (4.2-5.4)
[2020-08-27 05:57] LABS: BUN Creatinine Ratio 26.5 (10-20); Calcium 9.1 mg/dl (8.5-10.1); Creatinine Clr Calc Pharmacy 63.2 ml/min; Est GFR (African American) 94.9; Est GFR (Non-African American) 81.9; Magnesium 2.1 mg/dl (1.8-2.4); Potassium 3.9 mmol/L (3.5-5.1)
[2020-08-27 07:35] VITALS: BP 159/70; TEMP 98.6; O2SAT 99
--- NOTE | 2020-08-27 08:20 | Magnetic Resonance Report ---
MRI OF THE BRAIN WITHOUT AND WITH IV CONTRAST CLINICAL HISTORY: Dizziness vomiting headache loss of balance possible stroke COMPARISON STUDY: Noncontrast head CT dated 08/26/2020 TECHNIQUE: MRI of the brain was performed from the vertex to the skull base utilizing various T1 and T2 weighted sequences. Following the IV administration of 6.5 mL of Gadavist contrast, additional enh anced images were obtained. FINDINGS: Sagittal T1, axial diffusion, proton density and T2 weighted axial, coronal FLAIR, and pre and post a xial T1-weighted images were acquired. These were supplemented with post gadolinium coronal T1 weight ed images. No intra or extra-axial mass lesions are visualized. Axial diffusion-weighted images reveal no evidence of acute or subacute infarction. There is no evidence of ventricular dilatation. Proton density T2-weighted and FLAIR images reveal scattered foci of increased T2 signal within the w argenis matter, likely on a small vessel basis. There are no abnormal flow voids. There is no evidence of pathologic enhancement. IMPRESSION: 1. No intracranial findings 2. No evidence of acute or subacute infarction 3. No evidence of intracranial mass 4. Foci of increased T2 signal within the white matter likely on a small vessel ischemic basis. ACT 112: Negative or not required by law. Electronically signed by: Michael hSepard M.D. 08/27/2020 8:19 AM
[2020-08-27] MEDS: VALSARTAN 80 MG TAB PO SCH (08:39)
[2020-08-27] MEDS: AMOXICILLIN/CLAVULANATE 875 MG TAB PO SCH (08:39)
[2020-08-27] MEDS ORDERED: AMLODIPINE BESYLATE 5 MG TAB PO SCH ×2 (09:00)
[2020-08-27 11:54] VITALS: PULSE 65
--- NOTE | 2020-08-27 12:44 | Communication Note ---
Date of Service: August 27, 2020 Code 44 attestation: She is a 75-year-old female with significant past medical history of hypertension, GERD, osteoarthritis of both knees, chronic rhinitis, history of hypercalcemia and history of anaphylaxis due to Spironolactone was admitted with sudden onset of dizziness noted to be secondary to acute labyrinthitis. Relevant investigation including MRI of the brain came out to be negative for any significant lesion. She was evaluated by neurologist and her symptoms improved a lot as of this morning. Her chart, labs and imaging studies reviewed. She can be safely discharged today. By CMS guidelines, a determination that the admission or continued stay is not medically necessary has been made by a member of the UR committee and a physician for this hospital stay, therefore a Code 44 will be completed and the Inpatient admission will be changed to outpatient. DR [place]
--- NOTE | 2020-08-27 13:25 | Discharge Summary ---
Date of Service August 27, 2020 Admission HPI Per Admitting Provider 75-year-old female with past medical history significant for hypertension, GERD, history of asymptomatic microscopic hematuria, history of osteoarthritis of both knees, chronic rhinitis, history of hypercalcemia, history of anaphylaxis to spironolactone, family history of breast cancer who lives with her came in with vertigo. The patient is going to sleep and suddenly felt the room spinning. They thought it will go away, but did not go away and she has severe nausea and vomiting, which put pressure in her bladder and she has incontinence of the urine. She is also having ambulatory dysfunction, imbalance and was brought in here. The patient in the ER received Ativan, Zofran, and fluids. CT of the head, preliminary report unremarkable. The symptoms slowly improved. Her spinning has improved, but she still has some imbalance, but that is better than what she came in. The patient also complains of some drainage from the ear for last 2 days. Denies any fever, chills, no headache, no blurred vision, no runny nose, no sore throat, no cough, no loss of sense of smell or taste. No chest pain, no shortness of breath. No exposure to COVID patients. No abdominal discomfort, no diarrhea or constipation. Normal bladder movements. No swelling in the legs, no rash. Currently resting comfortably and hemodynamically stable. Admission Exam Per Admitting Provider GENERAL: The patient is of moderate build, not in acute distress. VITAL SIGNS: Temperature 36.4, pulse 80, respiratory rate 15, blood pressure 174/82, oxygen 95% on room air. HEENT: No pallor, no icterus. Pupils equal, round, reactive to light. Mild horizontal nystagmus present.Right ear erythema seen close to ear drum. Left ear not able to evaluate.some wax seen. NECK: No JVD, no neck masses. CARDIOVASCULAR: S1, S2 heard, regular rate and rhythm, no murmur, no gallop. RESPIRATORY SYSTEM: Normal AP diameter. No accessory muscle use. No wheezing, no crackles. ABDOMEN: Soft, bowel sounds present, nontender. No distention. CENTRAL NERVOUS SYSTEM: Cranial nerves II-XII grossly intact. Nonfocal. Power 5/5 in all extremities. Sensation is intact. No pronator drift. Coordination of movements normal. EXTREMITIES: No edema, no erythema. Principal Diagnosis Vertigo Likely inner ear neuritis/labyrinthitis Poorly controlled hypertension Discharge Exam Constitutional well nourished and + well hydrated; no acute distress Eyes PERRL, conjunctivae normal, anicteric sclerae ENMT external ear and nose normal, oropharynx normal Ears: no external ear abnormality Respiratory normal respiratory effort, lungs clear to auscultation Cardiovascular RRR, no murmur, no edema Gastrointestinal (Abdomen) normal bowel sounds, soft, nontender, no hepatosplenomegaly Musculoskeletal no cyanosis or clubbing, extremities motor strength 5/5 Neurologic PERRL, EOMI, accommodation nl, no face palsy, no dysarthria Psychiatric A+Ox3, euthymic affect Discharge Data Allergies Allergy/AdvReac Type Severity Reaction Status Date / Time spironolactone Allergy Severe ANAPHYLACTI Verified 08/26/20 00:48 C mold Allergy Mild SNEEZING, Verified 08/26/20 00:48 CONGESTION pollen extracts Allergy Mild SNEEZING, Verified 08/26/20 00:48 CONGESTION codeine AdvReac Intermediate VERY DROWSY Verified 08/26/20 00:48 Dust Allergy Mild SNEEZING, Uncoded 08/26/20 00:48 CONGESTION Consultations 08/26/20 02:13 ED Decision to Admit Stat 08/26/20 04:43 Consult Case Management - Discharge Planning Routine 08/26/20 08:00 Consult Neurology Routine Ordered Studies 08/26/20 00:13 CT head/brain wo con Urgent Sagittal T1, axial diffusion, proton density and T2 weighted axial, coronal FLAIR, and pre and post axial T1-weighted images were acquired. These were supplemented with post gadolinium coronal T1 weighted images. No intra or extra-axial mass lesions are visualized. Axial diffusion-weighted images reveal no evidence of acute or subacute infarction. There is no evidence of ventricular dilatation. Proton density T2-weighted and FLAIR images reveal scattered foci of increased T2 signal within the white matter, likely on a small vessel basis. There are no abnormal flow voids. There is no evidence of pathologic enhancement. IMPRESSION: 1. No intracranial findings 2. No evidence of acute or subacute infarction 3. No evidence of intracranial mass 4. Foci of increased T2 signal within the white matter likely on a small vessel ischemic basis. 08/26/20 16:56 MR brain wo/w con Urgent Sagittal T1, axial diffusion, proton density and T2 weighted axial, coronal FLAIR, and pre and post axial T1-weighted images were acquired. These were supplemented with post gadolinium coronal T1 weighted images. No intra or extra-axial mass lesions are visualized. Axial diffusion-weighted images reveal no evidence of acute or subacute infarction. There is no evidence of ventricular dilatation. Proton density T2-weighted and FLAIR images reveal scattered foci of increased T2 signal within the white matter, likely on a small vessel basis. There are no abnormal flow voids. There is no evidence of pathologic enhancement. IMPRESSION: 1. No intracranial findings 2. No evidence of acute or subacute infarction 3. No evidence of intracranial mass 4. Foci of increased T2 signal within the white matter likely on a small vessel ischemic basis. Hospital Course (1) Nausea and vomiting: (2) Dizziness: Vertigo Likely related to labyrinthitis, Otitis media Considering h/o chronic intermittent ear discharge, tinnitus Started on augmentin Vertigo has resolved CT/MRI did not suggest CVA Patient needs ENT follow up. She stated she had gotten an ENT appointment for 09/15/20 (3) Hypertension: Poorly controlled hypertension Was elevated during hospital stay up to 170-190s systolic. Amlodipine increased to 10mg daily SBP this AM in 150s Discharged on amlodipine 10mg daily Continue home valsartan To follow up PCP for continued management Per CMS guidelines, determination of inpatient stay was not necessary, therefore a code 44 was completed and inpatient admission changed to observation. Total Time Total Time Spent Total Time Spent (In Minutes): 35 Total Time Includes: Examination of the Patient, Discharge Planning and Medication Reconciliation Discharge Plan Discharge Items Patient Disposition: Home - Self-Care Reason For Visit: VERTIGO Discharge Diagnosis: Vertigo Likely inner ear neuritis/labyrinthitis Poorly controlled hypertension Activity: Resume your previous activity Non-emergency contact: Primary Care Provider Call non-emergency contact if: you have any medication questions and your symptoms worsen Follow-up/Referrals: Mc Sanabria MD [Primary Care Provider] - Diet: Heart Healthy Addtl Attending Provider Instructions: Ms Leary. You came to the hospital due to spinning sensation. You also reported chronic intermittent ear discharge and ringing in your ears which worsened recently. You were started on antibiotics. Please complete this at home It is very important that you follow up ENT doctor within the week for further evaluation. Your blood pressure was also very poorly controlled. Your amlodipine was increased to 10mg daily for better BP control. Please continue to take your medications Please follow up with your Primary Doctor. It was a pleasure taking care of you. Pending Studies at Discharge: No Stand-Alone Forms: My [facility], Smoking Cessation Medications and DC Order Prescriptions: New amoxicillin-pot clavulanate [Augmentin] 875-125 mg Tablet 1 tab PO BIDM 5 Days Qty: 10 RF: 0 amlodipine [Norvasc] 5 mg Tablet 10 mg PO DAILY 30 Days Qty: 60 RF: 0 Continued diphenhydramine HCl [Unisom SleepGels] 50 mg Capsule 50 - 100 mg PO HS PRN (Reason: Sleep) RF: 0 valsartan 80 mg tablet 80 mg PO DAILY RF: 0 esomeprazole magnesium [Nexium] 20 mg Capsule,Delayed Release(Dr/Ec) 20 mg PO DAILY PRN (Reason: INDIGESTION/HEARTBURN) RF: 0 melatonin 5 mg Tablet 5 mg PO HS PRN (Reason: Sleep) RF: 0 Discontinued amlodipine 2.5 mg tablet 2.5 mg PO DAILY RF: 0 Discharge Orders: Discharge Order (Routine); Ordered 08/27/20 Ordered By: Xochitl Farah Admission Data Admit Date/Time: 08/26/20 03:06 Attending Provider: Xochitl Farah I. Admit Provider: Carlos Welch Primary Care Provider: Mc Sanabria Other Providers: Carlos Welch ; Shelley Baker ; Yasir Linares Kathleen ; Deni Poole Other Interventions: Discharge Summary Assessment (RN) Last Done: 08/27/20 11:53
== END 2020-08-27 14:45 | disposition home or self-care (01) ==
LOC: ED 23:49 → INTOOBSV 08-26 03:06 → 3N 08-26 03:06